=== PATIENT | female | born 1975 | race Caucasian/White ===

== ENCOUNTER 2021-03-24 10:09 | Outpatient (CLI) | payer MEDICAID ==
--- NOTE | 2021-03-25 13:37 | Mammography Report ---
BILATERAL DIGITAL SCREENING MAMMOGRAM 3D/2D: 03/24/2021 CLINICAL: Routine screening. Comparison is made to exams dated: 12/15/2015 mammogram - [facility]- [place] and 05/27/2009 mammogram - [facility]. The tissue of both breasts is heterogeneously dense. This may lower the sensitivity of mammogra phy. No significant masses, calcifications, or other findings are seen in either breast. There has been no significant interval change. IMPRESSION: NEGATIVE There is no mammographic evidence of malignancy. A 1 year screening mammogram is recommended. This exam was interpreted at Station ID: [id number]. NOTE: For mammograms, a report in lay terms will be sent to the patient. Approximately 15% of breast malignancies will not be visualized mammographically. In the management of a palpable breast mass, a negative mammogram must not discourage biopsy of a clinically suspicious lesion. Electronically Signed By: Luis M Wise acr/penrad:03/24/2021 11:51:43 ACR BI-RADS Category 1: Negative 3341F PARENCHYMAL PATTERN: (D) - The breast(s) demonstrate(s) heterogeneously dense fibroglandular og robison. BI-RADS CATEGORY: (1) - 1 RECOMMENDATION: (ANNUAL) - Recommend routine annual screening mammography. [id number] 1 year screening LATERALITY: (B)
== END 2021-03-24 10:10 | disposition home or self-care (01) ==
LOC: DI 10:09
DX: Z12.31 Encounter for screening mammogram for malignant neoplasm of breast (principal)

== ENCOUNTER 2021-04-27 08:41 | Outpatient (CLI) | payer MEDICAID ==
[2021-04-27 09:05] LABS: BASOPHILS % (AUTO) 0.7 %; EOSINOPHILS # (AUTO) 0.1 10^3/uL (0.0-0.7); HCT - HEMATOCRIT 43.6 % (37.0-47.0); HGB - HEMOGLOBIN 14.3 g/dL (12.0-16.0); LYMPHOCYTES # (AUTO) 1.8 10^3/uL (1.5-3.5); LYMPHOCYTES % (AUTO) 39.3 %; MEAN CORPUSCULAR HEMOGLOBIN 29.9 pg (27.0-31.0); MEAN CORPUSCULAR HGB CONC 32.8 g/dL (32.0-36.0); MEAN CORPUSCULAR VOLUME 91.2 fL (81.0-99.0); MEAN PLATELET VOLUME 9.5 fL (7.9-10.8); MONOCYTES # (AUTO) 0.3 10^3/uL (0.0-1.0); MONOCYTES % (AUTO) 5.7 %; NEUTROPHILS # (AUTO) 2.4 10^3/uL (1.5-6.6); NEUTROPHILS % (AUTO) 52.1 %; PLT - PLATELET COUNT 142 10^3/uL (130-450); RED BLOOD COUNT 4.78 10^6/uL (4.20-5.40); RED CELL DISTRIBUTION WIDTH 12.8 % (12.0-15.0); WHITE BLOOD COUNT 4.6 x10^3/uL (4.8-10.8)
[2021-04-27 09:24] LABS: ALBUMIN 4.8 g/dL (3.2-5.5); ALBUMIN/GLOBULIN RATIO 1.5 (1.0-2.2); ALKALINE PHOSPHATASE 43 IU/L (42-121); ALT ALANINE AMINOTRANSFERASE 17 IU/L (10-60); AST ASPARTATE AMINOTRANSFERASE 18 IU/L (10-42); BUN - BLOOD UREA NITROGEN 12 mg/dL (6-20); CALCIUM 9.2 mg/dL (8.5-10.3); CARBON DIOXIDE - CO2 28 mmol/L (21-32); CHLORIDE 102 mmol/L (101-111); CHOL/HDL RATIO 3.2 (<4.4); CHOLESTEROL 236 mg/dL; CREATININE 0.8 mg/dL (0.4-1.0); GFR - MDRD 77 (>89); GLUCOSE 100 mg/dL (70-100); HDL CHOLESTEROL 74 mg/dL; LDL CHOLESTEROL,CALCULATED 149 mg/dL; POTASSIUM 3.8 mmol/L (3.5-5.0); SODIUM 139 mmol/L (135-145); TRIGLYCERIDES 63 mg/dL; VLDL CHOLESTEROL 13 mg/dL
[2021-04-27 09:33] LABS: T4 (THYROXINE) 5.75 ug/dL (6.09-12.23)
[2021-04-27 09:36] LABS: THYROID STIMULATING HORMONE 2.53 uIU/mL (0.34-5.60)
== END 2021-04-27 08:42 | disposition home or self-care (01) ==
LOC: LAB 08:41
PROVIDERS: ATTEND Family Medicine
DX: Z01.411 Encounter for gynecological examination (general) (routine) with abnormal findings (principal)
CPT/HCPCS: 36415; 80053; 80061; 83721; 84436; 84443; 85025

== ENCOUNTER 2021-09-01 08:42 | Outpatient (CLI) | payer MEDICAID ==
[2021-09-01 09:35] LABS: T4 (THYROXINE) 4.34 ug/dL (6.09-12.23)
[2021-09-01 09:40] LABS: THYROID STIMULATING HORMONE 2.5 uIU/mL (0.34-5.60)
== END 2021-09-01 08:43 | disposition home or self-care (01) ==
LOC: LAB 08:42
PROVIDERS: ATTEND Family Medicine
DX: E07.9 Disorder of thyroid, unspecified (principal)
CPT/HCPCS: 36415; 84436; 84443; 86900; 86901

== ENCOUNTER 2022-01-06 02:20 | Emergency (ER) | payer MEDICAID ==
[2022-01-06] MEDS ORDERED: lidocaine 1% 20 ML MDV SUBQ ONE (02:54)
[2022-01-06] MEDS ORDERED: BACITRACIN ZINC OINT 1 PACKET TOP STA (03:44)
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
[2022-01-06] MEDS ORDERED: BACITRACIN ZINC OINT 1 PACKET TOP ONE (03:57)
[2022-01-06 04:17] VITALS: BP 127/81
== END 2022-01-06 04:05 | disposition home or self-care (01) ==
LOC: ED 02:20
DX: S01.511A Laceration without foreign body of lip, initial encounter (principal); W01.198A Fall on same level from slipping, tripping and stumbling with subsequent striking against other object, initial encounter; Y92.009 Unspecified place in unspecified non-institutional (private) residence as the place of occurrence of the external cause
CPT/HCPCS: 12013; 99281

== ENCOUNTER 2022-01-06 17:15 | Emergency (ER) | payer MEDICAID ==
[2022-01-06] MEDS ORDERED: PROMETHAZINE 25 MG/1 ML VIAL IM STA (17:44)
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
[2022-01-06 18:56] VITALS: BP 124/70
== END 2022-01-06 18:54 | disposition home or self-care (01) ==
LOC: ED 17:15
DX: S09.90XA Unspecified injury of head, initial encounter (principal); S01.511A Laceration without foreign body of lip, initial encounter; W01.198A Fall on same level from slipping, tripping and stumbling with subsequent striking against other object, initial encounter; Y92.009 Unspecified place in unspecified non-institutional (private) residence as the place of occurrence of the external cause
CPT/HCPCS: 12013; 70450; 72125; 96372; 99281; 99282; 99284; A9270

== ENCOUNTER 2022-07-01 18:05 | Outpatient (CLI) | payer MEDICAID | END 2022-07-01 23:59 | disposition home or self-care (01) | LOC: LAB.S 18:05 | PROVIDERS: ATTEND Physician Assistant | DX: L02.612 Cutaneous abscess of left foot (principal) | CPT/HCPCS: 87070; 87181; 87205 ==

== ENCOUNTER 2022-11-28 08:49 | Outpatient (CLI) | payer MEDICAID ==
--- NOTE | 2022-11-29 10:04 | Mammography Report ---
BILATERAL DIGITAL SCREENING MAMMOGRAM 3D/2D WITH EXAGGERATED CC: 11/28/2022 CLINICAL: Routine screening. Comparison is made to exams dated: 03/24/2021 mammogram - [facility] and 12/15/2015 m ammogram - [facility]- [place]. Both breasts are extremely dense, which lowers the sensitivity of mammography (category d />75% gland ular tissue). No significant masses, calcifications, or other findings are seen in either breast. There has been no significant interval change. IMPRESSION: NEGATIVE There is no mammographic evidence of malignancy. A 1 year screening mammogram is recommended. Based on the Tyrer Cuzick model (a risk assessment model) the patients lifetime risk is 16.7% and he r 10 year risk is 3.6%. According to the ACR, ACS, and NCCN guidelines, an annual breast MRI exam ney ng with mammogram is recommended if the patients lifetime risk is 20% or greater. This exam was interpreted at Station ID: [id number]. NOTE: For mammograms, a report in lay terms will be sent to the patient. Approximately 15% of breast malignancies will not be visualized mammographically. In the management of a palpable breast mass, a negative mammogram must not discourage biopsy of a clinically suspicious lesion. Electronically Signed By: Jamari bermudez/brittani:11/28/2022 17:11:36 letter sent: No_Letter ACR BI-RADS Category 1: Negative 3341F PARENCHYMAL PATTERN: (VD) - The breast(s) demonstrate(s) extremely dense parenchyma, limiting the sen sitivity of mammography. BI-RADS CATEGORY: (1) - 1 Mammogram [id number] 1 year screening LATERALITY: (B)
== END 2022-11-28 08:50 | disposition home or self-care (01) ==
LOC: DI 08:49
DX: Z12.31 Encounter for screening mammogram for malignant neoplasm of breast (principal); Z13.220 Encounter for screening for lipoid disorders
CPT/HCPCS: 36415; 80061; 83721

== ENCOUNTER 2022-11-28 08:50 | Outpatient (CLI) | payer MEDICAID ==
[2022-11-28 09:49] LABS: CHOL/HDL RATIO 3.1 (<4.4); CHOLESTEROL 201 mg/dL; HDL CHOLESTEROL 65 mg/dL; LDL CHOLESTEROL,CALCULATED 127 mg/dL; TRIGLYCERIDES 43 mg/dL; VLDL CHOLESTEROL 9 mg/dL
== END 2022-11-28 08:51 | disposition home or self-care (01) ==
LOC: LAB 08:50
PROVIDERS: ATTEND Family Medicine
DX: Z13.220 Encounter for screening for lipoid disorders (principal)
CPT/HCPCS: 36415; 80061; 83721

== ENCOUNTER 2023-12-07 10:16 | Outpatient (CLI) | payer OTHER ==
--- NOTE | 2023-12-10 08:09 | Mammography Report ---
BILATERAL DIGITAL SCREENING MAMMOGRAM 3D/2D WITH EXAGGERATED CC: 12/07/2023 CLINICAL: Routine screening. Comparison is made to exams dated: 11/28/2022 mammogram, 03/24/2021 mammogram - [facility], and 12/15/2015 mammogram - [facility]- [place]. Both breasts are extremely dense, which lowers the sensitivity of mammography (category d />75% gland ular tissue). No significant masses, calcifications, or other findings are seen in either breast. There has been no significant interval change. IMPRESSION: NEGATIVE There is no mammographic evidence of malignancy. A 1 year screening mammogram is recommended. Based on the Tyrer Cuzick model (a risk assessment model) the patient's lifetime risk is 17.0% and he r 10 year risk is 3.9%. According to the ACR, ACS, and NCCN guidelines, an annual breast MRI exam ney ng with mammogram is recommended if the patient's lifetime risk is 20% or greater. This exam was interpreted at Station ID: [id number]. NOTE: For mammograms, a report in lay terms will be sent to the patient. Approximately 15% of breast malignancies will not be visualized mammographically. In the management of a palpable breast mass, a negative mammogram must not discourage biopsy of a clinically suspicious lesion. Electronically Signed By: Kat gotti/brittani:12/07/2023 13:59:28 letter sent: No_Letter ACR BI-RADS Category 1: Negative 3341F PARENCHYMAL PATTERN: (VD) - The breast(s) demonstrate(s) extremely dense parenchyma, limiting the sen sitivity of mammography. BI-RADS CATEGORY: (1) - 1 RECOMMENDATION: (ANNUAL) - Recommend routine annual screening mammography. [id number] 1 year screening LATERALITY: (B)
== END 2023-12-07 10:17 | disposition home or self-care (01) ==
LOC: DI 10:16
PROVIDERS: ATTEND Physician Assistant Medical
DX: Z12.31 Encounter for screening mammogram for malignant neoplasm of breast (principal); R92.30 Dense breasts, unspecified

== ENCOUNTER 2024-04-02 07:23 | Day surgery (SDC) | payer OTHER ==
[2024-04-02] MEDS: LACTATED RINGERS 1,000 ML IV ONE (07:26)
[2024-04-02 07:44] VITALS: O2SAT 100
[2024-04-02] MEDS ORDERED: MIDAZOLAM 2 MG/2 ML VIAL ONE (08:11)
[2024-04-02] MEDS ORDERED: PROPOFOL 500 MG/50 ML 500 MG/50 ML VIAL ONE (08:11)
--- NOTE | 2024-04-02 08:13 | ANESTHESIA ---
Pre-Anesthesia VS, & Labs - Diagnosis screening - Procedure colonoscopy Vital Signs: Temp Pulse Resp BP Pulse Ox O2 Flow Rate 36.3 C L 73 16 108/73 100 04/02/24 07:30 04/02/24 07:30 04/02/24 07:30 04/02/24 07:30 04/02/24 07:30 Height: 5 ft 9 in Weight (kg): 68.1 kg Body Mass Index: 22.1 BMI Classification: Normal - NPO Last Fluid Intake: 529 Last Food Intake: >8hr - Is Patient ?: No, Waiver signed - Lab Results Lab results reviewed: Yes Home Medications and Allergies Sertraline [Zoloft] 50 mg PO DAILY 01/06/22 lamoTRIgine [Lamictal] 25 mg PO DAILY 01/06/22 Allergies/Adverse Reactions: Allergies Allergy/AdvReac Type Severity Reaction Status Date / Time amoxicillin Allergy Intermediate Hives Verified 04/01/24 13:08 Anes History & Medical History - Anesthetic History Anesthesia Complications: reports: No previous complications Family history of Anesthesia Complications: Denies - Medical History Cardiovascular: reports: None Pulmonary: reports: None Gastrointestinal: reports: None Urinary: reports: None Neuro: reports: None Musculoskeletal: reports: Chronic back pain Endocrine/Autoimmune: reports: None Blood Disorders: reports: None Skin: reports: None Smoking Status: Never smoker Psychosocial: reports: No issues indicated Exam General: Alert, Oriented x3 Dental: WNL Mouth Openin Fingerbreadth Neck Mobility: Normal Mallampati classification: II Respiratory: Lungs clear Cardiovascular: Regular rate Plan Anesthesia Type: Total IV Consent for Procedure(s) Verified and Reviewed: Yes Code Status: Attempt Resuscitation ASA classification: 1-Healthy patient Is this case an emergency?: No
[2024-04-02] MEDS ORDERED: PROPOFOL 200 MG/20 ML VIAL IVP ONE (08:50)
[2024-04-02] MEDS ORDERED: ePHEDrine 50 MG/ML VIAL IVP ONE (09:00)
[2024-04-02] MEDS: LACTATED RINGERS 200 ML IV ONE (09:12)
[2024-04-02 09:26] VITALS: BP 105/70
--- NOTE | 2024-04-02 13:19 | ANESTHESIA POST OP EVALUATION ---
Anesthesia Post Eval - Post Anesthesia Eval Vitals: Last Vital Signs Temp 36.3 C L 04/02/24 10:00 Pulse 72 04/02/24 10:00 Resp 16 04/02/24 10:00 BP 105/70 04/02/24 09:24 Pulse Ox 100 04/02/24 10:00 O2 Flow Rate CV Function Including HR & BP: Stable Pain Control: Satisfactory Nausea & Vomiting: Negative Mental Status: Baseline Respiratory Status: Airway Patent Hydration Status: Satisfactory Anesthesia Complications: None
== END 2024-04-02 07:24 | disposition home or self-care (01) ==
LOC: SDS 07:23
PROVIDERS: ATTEND Surgery
DX: Z12.11 Encounter for screening for malignant neoplasm of colon (principal); K64.9 Unspecified hemorrhoids
CPT/HCPCS: 45378; J7120